=== PATIENT | female | born 1975 | race Caucasian/White ===

== ENCOUNTER → 2017-08-27 08:50 | Outpatient (REF) | payer OTHER, SELFPAY ==
[2017-08-27 13:28] LABS: Basophils # 0.1 K/mm3 (0-0.2); Basophils % 1.3 % (0.1-2.0); Eosinophils % 0.8 % (0.1-12.0); Hematocrit 47.7 % (37.0-47.0); Hemoglobin 15.2 g/dL (12.2-16.2); Lymphocytes # 1.6 K/mm3 (0.7-4.5); Lymphocytes % 32.2 K/mm3 (10-50); Mean Corpuscular HGB Conc 31.9 g/dL (31.8-35.4); Mean Corpuscular Hemoglobin 31.1 pg (27.0-31.2); Mean Corpuscular Volume 97.6 fl (81-99); Mean Platelet Volume 7.7 fl (7.4-10.4); Monocytes # 0.3 K/mm3 (0.1-1.0); Monocytes % 5.7 % (1.7-9.3); Neutrophils # 2.9 K/mm3 (1.8-7.8); Platelet Count 231 K/mm3 (142-424); Red Blood Count 4.89 M/mm3 (4.20-5.40); Red Cell Distribution Width 12.3 % (11.5-17.5); White Blood Count 4.8 K/mm3 (4.8-10.8)
[2017-08-27 17:07] LABS: Alanine Aminotransferase 21 U/L (12-78); Albumin Level 4.2 gm/dL (3.4-5.0); Albumin/Globulin Ratio 1.5 (1.1-1.8); Alkaline Phosphatase 68 U/L (46-116); Anion Gap 9.6 mEq/L (5-15); Aspartate Amino Transferase 52 U/L (15-37); Bilirubin,Total 0.3 mg/dL (0.2-1.0); Blood Urea Nitrogen 8 mg/dL (7-18); Calcium 9.4 mg/dL (8.5-10.1); Carbon Dioxide 30 mmol/L (21.0-32.0); Chloride 104 mmol/L (98-107); Chol/HDL Ratio 2.6 (1-3.5); Cholesterol 157 mg/dL (140-200); Creatinine,Serum 0.73 mg/dL (0.55-1.02); Estimated Glomerular Filt Rate 87 ml/min (>60); GFR (African American) 105 ML/MIN (>60); Globulin 2.8 gm/dl (1.3-3.2); Glucose 86 mg/dL (74-106); HDL Cholesterol 60 mg/dL (29-89); LDL Cholesterol 80 mg/dL (0-130); Potassium 4.6 mmoL/L (3.5-5.1); Sodium 139 mmol/L (136-145); T4 (Thyroxine) 9.4 ug/dl (4.7-13.3); Thyroid Stimulating Hormone 1.88 uIU/ml (0.358-3.740); Triglycerides 83 mg/dL (30-200); VLDL Cholesterol 17 mg/dL (0-40)
[2017-08-29 06:17] LABS: Vitamin D 25 Hydroxy 19.4 ng/mL (30.0-100.0)
== END ==
LOC: LAB 08:50
PROVIDERS: Visit Provider Physician Assistant
DX: E89.0 Postprocedural hypothyroidism (principal); M89.8X1 Other specified disorders of bone, shoulder
CPT/HCPCS: 80053; 80061; 82652; 84436; 84443; 85025

== ENCOUNTER → 2018-10-29 13:53 | Outpatient (CLI) | payer OTHER, SELFPAY ==
[2018-10-29 14:41] LABS: Basophils # 0.1 K/mm3 (0-0.2); Basophils % 1.3 % (0.1-2.0); Eosinophils # 0.2 K/mm3 (0.0-0.4); Eosinophils % 2.3 % (0.1-12.0); Hematocrit 47.7 % (37.0-47.0); Hemoglobin 15.4 g/dL (12.2-16.2); Lymphocytes # 2.6 K/mm3 (0.7-4.5); Lymphocytes % 39.2 % (10-50); Mean Corpuscular HGB Conc 32.3 g/dL (31.8-35.4); Mean Corpuscular Volume 95.9 fl (81-99); Mean Platelet Volume 8.3 fl (7.4-10.4); Monocytes # 0.3 K/mm3 (0.1-1.0); Neutrophils # 3.5 K/mm3 (1.8-7.8); Neutrophils % 52.3 % (37.0-80.0); Platelet Count 250 K/mm3 (142-424); Red Blood Count 4.97 M/mm3 (4.20-5.40); Red Cell Distribution Width 12.4 % (11.5-17.5); White Blood Count 6.7 K/mm3 (4.8-10.8)
[2018-10-29 14:46] LABS: Alanine Aminotransferase 21 U/L (12-78); Albumin Level 3.9 gm/dL (3.4-5.0); Albumin/Globulin Ratio 1.4 (1.1-1.8); Alkaline Phosphatase 64 U/L (46-116); Anion Gap 13.4 mEq/L (5-15); Aspartate Amino Transferase 47 U/L (15-37); Bilirubin,Total 0.3 mg/dL (0.2-1.0); Blood Urea Nitrogen 14 mg/dL (7-18); Calcium 9.2 mg/dL (8.5-10.1); Carbon Dioxide 28 mmol/L (21.0-32.0); Chloride 105 mmol/L (98-107); Chol/HDL Ratio 3.2 (1-3.5); Cholesterol 137 mg/dL (140-200); Creatinine,Serum 0.68 mg/dL (0.55-1.02); Estimated Glomerular Filt Rate 94 ml/min (>60); GFR (African American) 113 ML/MIN (>60); Globulin 2.7 gm/dl (1.3-3.2); Glucose 104 mg/dL (74-106); HDL Cholesterol 43 mg/dL (29-89); LDL Cholesterol 64 mg/dL (0-130); Potassium 3.4 mmoL/L (3.5-5.1); Sodium 143 mmol/L (136-145); T4 (Thyroxine) 10.3 ug/dl (4.7-13.3); Thyroid Stimulating Hormone 3.17 uIU/ml (0.358-3.740); Total Protein,Serum 6.6 gm/dL (6.4-8.2); Triglycerides 151 mg/dL (30-200); VLDL Cholesterol 30 mg/dL (0-40)
== END ==
PROVIDERS: Visit Provider Physician Assistant
DX: E89.0 Postprocedural hypothyroidism (principal); E55.9 Vitamin D deficiency, unspecified
CPT/HCPCS: 80053; 80061; 82652; 84436; 84443; 85025

== ENCOUNTER 2020-04-04 13:36 | Emergency (ER) | payer OTHER, SELFPAY ==
[2020-04-04 13:45] VITALS: BP 126/57; PULSE 88; RESP 16; TEMP 36.8; O2SAT 97; BMI 17.9
[2020-04-04 14:02] LABS: UTC Strep Screen (Rapid) Negative (Negative)
--- NOTE | 2020-04-04 14:14 | HMH.EDUTC ---
[facility] [place] Disposition Clinical Impression: Enlarged lymph node in neck Otitis media Qualifiers: Otitis media type: suppurative Chronicity: acute Laterality: left Recurrence: non-recurrent Spontaneous tympanic membrane rupture: without spontaneous rupture Qualified Code(s): H66.002 - Acute suppurative otitis media without spontaneous rupture of ear drum, left ear Disposition: Home, Self-Care Condition on Discharge: Good Instructions: Middle Ear Infection Additional Instructions: Start antibiotic as soon as possible and be sure to take as ordered for full length of time even though he should start feeling better in 24-48 hours. Tylenol or Motrin as needed for pain or fever Encourage fluids, water, Gatorade, Powerade, Pedialyte if infant/toddler/child Warm compresses often helps when placed over ear Return immediately for new or worsening symptoms no noticeable improvement in 48-72 hours and in 10-14 days to ensure the ears are return to baseline. Follow-up with primary care Prescriptions: cephALEXin [Keflex 500mg Cap] 500 mg PO BID 10 Days #20 cap Referrals: Negra Díaz PA [Primary Care Provider] - Time of Disposition: 14:20 Medical Decision Making - Ernie Inquiry Pt receiving controlled substance: No Vital Signs: 04/04/20 13:45 Temperature 98.3 F Temperature Source Oral Pulse Rate [Right Brachial] 88 Respiratory Rate 16 Blood Pressure [Right Arm] 126/57 L Blood Pressure Mean [Right Arm] 80 Blood Pressure Source [Right Arm] Automatic Cuff Blood Pressure Position [Right Arm] Sitting 02 Sat by Pulse Oximetry 97 Oxygen Delivery Method Room Air - Lab Data Lab Results 04/04/20 13:54: Strep Scn Rapid Clinic Negative Orders (Tests/Meds): ED MEDICATIONS Discontinued Medications Generic Name Dose Route Start Last Admin Trade Name Freq PRN Reason Stop Dose Admin Ceftriaxone Sodium 1 gm 04/04/20 14:13 Ceftriaxone 1gm Vial IM 04/04/20 14:14 ONCE ONE Protocol Lidocaine HCl 0 ml 04/04/20 14:13 Lidocaine 1% 5ml Pf Vial IM 04/04/20 14:14 ONCE ONE ORDERS Category Date Time Status Strep Screen Confirmation Stat Micro 04/04/20 13:54 Received [facility] [place] HPI - General Chief complaint: Urgent Treatment Center Stated complaint: sore throat Time Seen by Provider: 04/04/20 14:15 Mode of Arrival: Ambulatory Source of Information: Patient Limitations: No Limitations Description of Symptoms (Recalled from Triage Doc. by RN): PATIENT C/O SORE THROAT. SON IN LAW RECENTLY TREATED FOR TONSILITIS HEENT Symptoms (Recalled from RN notes): Yes Resp Symptoms (Recalled from RN notes): No Skin Symptoms (Recalled from RN notes): No MS Symptoms (Recalled from RN notes): No Functional Status (Recalled from RN notes): WNL - History of Present Illness Provider Complaint: 45 yr old female presents for swollen gland on the left and sore throat. pt states family was treated for tonsilitits. - Related Data Previous Rx's Medication Instructions Recorded cholecalciferol (vitamin D3) 25 1,000 unit PO DAILY #90 cap 11/04/18 mcg (1,000 unit) capsule ergocalciferol (vitamin D2) 1,250 50,000 unit PO QWEEK #14 cap 11/04/18 mcg (50,000 unit) capsule amoxicillin 875 mg-potassium 1 tab PO BID 10 Days #20 tab 10/02/19 clavulanate 125 mg tablet prednisone 20 mg tablet 20 mg PO BID #10 tab 10/02/19 pseudoephedrine HCl 120 mg 120 mg PO Q12H #20 tab 10/02/19 tablet,extended release ondansetron 8 mg disintegrating 8 mg PO Q8H PRN #10 tab 10/06/19 tablet levothyroxine 75 mcg tablet See Rx Instructions .ROUTE 02/12/20 .COMPLEX #90 tab cephALEXin [Keflex 500mg Cap] 500 mg PO BID 10 Days #20 cap 04/04/20 Allergies Allergy/AdvReac Type Severity Reaction Status Date / Time Sulfonamide Related Allergy Unknown Uncoded 10/02/19 11:04 - Worker's Comp Is this a Worker's Comp case?: No [facility] History - Hepatitis A Screen Drug use history?: No High risk sexual behaviors?
[2020-04-04 14:27] VITALS: BP 126/57; PULSE 88; RESP 16; TEMP 36.8; O2SAT 97
== END 2020-04-04 14:35 | disposition home or self-care (01) ==
PROVIDERS: Emergency Provider Nurse Practitioner Family; PCP Physician Assistant
DX: H66.002 Acute suppurative otitis media without spontaneous rupture of ear drum, left ear (principal); R59.0 Localized enlarged lymph nodes; E03.9 Hypothyroidism, unspecified; F17.210 Nicotine dependence, cigarettes, uncomplicated; Z87.442 Personal history of urinary calculi; Z88.2 Allergy status to sulfonamides
CPT/HCPCS: 87880; 96372; 99202

== ENCOUNTER 2020-04-05 17:54 | Emergency (ER) | payer OTHER, SELFPAY ==
[2020-04-05 18:59] VITALS: BP 130/74; PULSE 83; RESP 21; TEMP 36.7; O2SAT 99; BMI 17.9
[2020-04-05 19:03] VITALS: BP 130/74; PULSE 83; RESP 20; TEMP 36.7; O2SAT 99
--- NOTE | 2020-04-05 19:16 | HMH.EDUTC ---
[facility] [place] Clinical Impression: Encounter for laboratory testing for COVID-19 virus Disposition: Home, Self-Care Condition on Discharge: Good Instructions: Preventing the Spread of Coronavirus Discharge Instructions Additional Instructions: *Monitor Temp, Over the counter Motrin or Tylenol as directed/as needed Tylenol every 4 hours and Motrin every 6 hours (as long as your family doctor has told you that you can take it) for fever or pain. and straight to ER if unable to lower temp less than 101.0 after medication given *Warm salt water gargles may help to soothe the throat *Throat Lozenges *Warm fluids like tea with honey may help to soothe the throat *Sleep elevated *Humidifier/Vaporizer Follow up IMMEDIATELY for new or worsening symptoms or no Noticeable improvement over the next 48-72 hours. 911 for difficulty breathing or swallowing You were tested for today for COVID19 your test result should be back in the next 24-48 hours, you may call to the [facility] to see if your test results are back in the next 48 hours [phone] [facility] hours are 9am-9pm You was given a handout with instructions for Self Quarantine and Self isolation for while you wait on test results and what to do if they are positive If you are positive the Health Dept will be contacting you also Referrals: Negra Díaz PA [Primary Care Provider] - As needed Forms: Work/School Release Time of Disposition: 19:19 Medical Decision Making - Ernie Inquiry Pt receiving controlled substance: No Ernie was queried for this patient: No Vital Signs: 04/05/20 18:59 04/05/20 19:03 Temperature 98.1 F 98.1 F Temperature Source Oral Tympanic Pulse Rate 83 Pulse Rate [Left] 83 Respiratory Rate 21 20 Blood Pressure 130/74 Blood Pressure [Right Arm] 130/74 Blood Pressure Mean [Right Arm] 92 Blood Pressure Source [Right Arm] Automatic Cuff Blood Pressure Position [Right Arm] Sitting 02 Sat by Pulse Oximetry 99 Oxygen Delivery Method Room Air Orders (Tests/Meds): ORDERS Category Date Time Status Covid-19 Nasal PCR Sendout [facility] Stat Lab 04/05/20 18:37 Ordered Medical Decision Narrative: Patient states that she was seen and treated yesterday for Ear infection and started on Keflex [facility] [place] - General Stated complaint: covid test Time Seen by Provider: 04/05/20 19:16 Mode of Arrival: Ambulatory Source of Information: Patient Limitations: No Limitations Description of Symptoms (Recalled from Triage Doc. by RN): Covid test- No exposure or symptoms HEENT Symptoms (Recalled from RN notes): No Resp Symptoms (Recalled from RN notes): No Skin Symptoms (Recalled from RN notes): No MS Symptoms (Recalled from RN notes): No Functional Status (Recalled from RN notes): wnl - History of Present Illness Provider Complaint: Patient states that she is not having any symptoms but wanted to get tested for COVID after her job requested that she come in and get tested for COVID - Related Data Previous Rx's Medication Instructions Recorded cholecalciferol (vitamin D3) 25 1,000 unit PO DAILY #90 cap 11/04/18 mcg (1,000 unit) capsule ergocalciferol (vitamin D2) 1,250 50,000 unit PO QWEEK #14 cap 11/04/18 mcg (50,000 unit) capsule amoxicillin 875 mg-potassium 1 tab PO BID 10 Days #20 tab 10/02/19 clavulanate 125 mg tablet prednisone 20 mg tablet 20 mg PO BID #10 tab 10/02/19 pseudoephedrine HCl 120 mg 120 mg PO Q12H #20 tab 10/02/19 tablet,extended release ondansetron 8 mg disintegrating 8 mg PO Q8H PRN #10 tab 10/06/19 tablet levothyroxine 75 mcg tablet See Rx Instructions .ROUTE 02/12/20 .COMPLEX #90 tab cephALEXin [Keflex 500mg Cap] 500 mg PO BID 10 Days #20 cap 04/04/20 Allergies Allergy/AdvReac Type Severity Reaction Status Date / Time Sulfonamide Related Allergy Intermediate Unknown Uncoded 04/05/20 19:03 allergy reaction - Worker's Comp Is this a Worker's Comp case?: No Is this an [facility] Worker's Co
[2020-04-07 14:18] LABS: Covid-19 Nasal PCR Sendout Lex Not Detected
== END 2020-04-05 19:37 | disposition home or self-care (01) ==
PROVIDERS: Emergency Provider Nurse Practitioner; PCP Physician Assistant
DX: Z20.828 Contact with and (suspected) exposure to other viral communicable diseases (principal); E03.9 Hypothyroidism, unspecified; Z87.442 Personal history of urinary calculi; F17.210 Nicotine dependence, cigarettes, uncomplicated; Z79.899 Other long term (current) drug therapy
CPT/HCPCS: 99201; U0004

== ENCOUNTER → 2020-12-02 14:08 | Outpatient (CLI) | payer OTHER, SELFPAY ==
[2020-12-02 14:27] LABS: Basophils # 0.2 K/mm3 (0-0.2); Basophils % 2.3 % (0.1-2.0); Eosinophils # 0.1 K/mm3 (0.0-0.4); Eosinophils % 1.6 % (0.1-12.0); Hematocrit 48.1 % (37.0-47.0); Hemoglobin 16.1 g/dL (12.2-16.2); Lymphocytes # 3.4 K/mm3 (0.7-4.5); Lymphocytes % 40.4 % (10-50); Mean Corpuscular HGB Conc 33.5 g/dL (31.8-35.4); Mean Corpuscular Hemoglobin 31.7 pg (27.0-31.2); Mean Corpuscular Volume 94.5 fl (81-99); Monocytes # 0.5 K/mm3 (0.1-1.0); Monocytes % 5.5 % (1.7-9.3); Neutrophils # 4.2 K/mm3 (1.8-7.8); Neutrophils % 50.1 % (37.0-80.0); Platelet Count 254 K/mm3 (142-424); Red Blood Count 5.08 M/mm3 (4.20-5.40); Red Cell Distribution Width 13.5 % (11.5-17.5); White Blood Count 8.3 K/mm3 (4.8-10.8)
[2020-12-02 15:00] LABS: 25-OH Vitamin D, Total 24.6 ng/mL (30-100)
[2020-12-02 15:03] LABS: Free T4 (Free Thyroxine) 1.56 ng/dl (0.78-2.19)
[2020-12-02 22:13] LABS: Alanine Aminotransferase 30 U/L (12-78); Albumin Level 4.8 g/dl (3.5-5.0); Albumin/Globulin Ratio 1.8 (1.1-1.8); Alkaline Phosphatase 71 U/L (38-126); Anion Gap 16.2 mEq/L (5-15); Aspartate Amino Transferase 97 U/L (14-36); Bilirubin,Total 0.4 mg/dl (0.2-1.3); Blood Urea Nitrogen 20 mg/dl (7-17); Calcium 9.4 mg/dl (8.4-10.2); Carbon Dioxide 28 mmol/L (22.0-30.0); Chloride 101 mmol/L (98-107); Chol/HDL Ratio 2.4 (1-3.5); Cholesterol 169 mg/dl (140-200); Estimated Glomerular Filt Rate 67 ml/min (>60); GFR (African American) 81 ML/MIN (>60); Globulin 2.6 g/dL (1.3-3.2); Glucose 60 mg/dl (74-100); HDL Cholesterol 69 mg/dl (40-60); Potassium 4.2 mmoL/L (3.5-5.1); Sodium 141 mmol/L (136-145); Total Protein,Serum 7.4 g/dl (6.3-8.2); Triglycerides 161 mg/dl (30-150); VLDL Cholesterol 32 mg/dL (0-40)
[2020-12-02 22:24] LABS: Direct LDL Cholesterol 73.89 mg/dL (100-129)
[2020-12-02 22:43] LABS: Thyroid Stimulating Hormone 6.05 uIU/mL (0.465-4.68)
== END ==
PROVIDERS: Visit Provider Physician Assistant
DX: E89.0 Postprocedural hypothyroidism (principal); E55.9 Vitamin D deficiency, unspecified
CPT/HCPCS: 80053; 80061; 82306; 84439; 84443; 85025

== ENCOUNTER → 2020-12-30 08:41 | Outpatient (CLI) | payer OTHER, SELFPAY ==
--- NOTE | 2020-12-30 08:41 | US_ITS ---
PROCEDURE: US LIVER CLINICAL INDICATION: Elevated liver enzymes COMPARISON: No exams were available for comparison FINDINGS: PANCREAS: Unremarkable. No obvious mass or abnormal fluid collection. No ductal dilatation LIVER: No focal liver lesions demonstrated. Homogeneous echogenicity. No intrahepatic biliary ductal dilatation evident. There is appropriate direction of blood flow within a non dilated portal vein RIGHT KIDNEY: Unremarkable. Normal size and echogenicity. No hydronephrosis GALLBLADDER: Prior cholecystectomy. Common bile duct is normal at 2 mm. IMPRESSION: Prior cholecystectomy otherwise negative Dictated by: Danielito Le MD 12/30/2020 16:09 Danielito Le MD in [place] 12/30/2020 16:09
== END ==
PROVIDERS: PCP Physician Assistant; Visit Provider Physician Assistant
DX: R74.8 Abnormal levels of other serum enzymes (principal)
CPT/HCPCS: 76705

== ENCOUNTER → 2020-12-30 09:19 | Outpatient (CLI) | payer OTHER, SELFPAY ==
[2020-12-31 08:30] LABS: Hep A Ab, IgM Negative (Negative); Hepatitis B Core Antibody IgM Negative (Negative); Hepatitis B Surface Antigen Negative (Negative); Hepatitis C Antibody <0.1 s/co ratio (0.0-0.9)
== END ==
PROVIDERS: Visit Provider Physician Assistant
DX: R74.8 Abnormal levels of other serum enzymes (principal)
CPT/HCPCS: 36415; 80074

== ENCOUNTER → 2021-03-16 13:15 | Outpatient (CLI) | payer OTHER, SELFPAY ==
[2021-03-16 14:35] LABS: Alanine Aminotransferase 16 U/L (12-78); Albumin Level 4.7 g/dl (3.5-5.0); Alkaline Phosphatase 41 U/L (38-126); Aspartate Amino Transferase 64 U/L (14-36); Bilirubin,Direct 0.2 mg/dl (0.0-0.4); Bilirubin,Indirect 0.2 mg/dL (0.0-0.9); Bilirubin,Total 0.4 mg/dl (0.2-1.3); Bilirubin,Unconjugated 0.2 mg/dL (0.0-1.1); Total Protein,Serum 7.2 g/dl (6.3-8.2)
== END ==
PROVIDERS: Visit Provider Physician Assistant
DX: R74.8 Abnormal levels of other serum enzymes (principal)
CPT/HCPCS: 36415; 80076

== ENCOUNTER → 2021-06-24 16:00 | Outpatient (CLI) | payer OTHER, SELFPAY ==
[2021-06-24 17:18] LABS: Adenovirus,PCR Not Detected (NotDetected); Bordetella Pertussis Not Detected (NotDetected); Chlamydophila Pneumoniae, PCR Not Detected (NotDetected); Coronavirus 19, PCR Not Detected (NotDetected); Coronavirus 229E Not Detected (NotDetected); Coronavirus NL63 Not Detected (NotDetected); Coronavirus OC43 Not Detected (NotDetected); Coronovirus HKU1,PCR Not Detected (NotDetected); Human Metapneumovirus Not Detected (NotDetected); Influenza A, PCR Not Detected (NotDetected); Influenza AH1, 2009 Not Detected (NotDetected); Influenza AH1, PCR Not Detected (NotDetected); Influenza AH3,PCR Not Detected (NotDetected); Influenza B, PCR Not Detected (NotDetected); Mycoplasma Pneumoniae, PCR Not Detected (NotDetected); Parainfluenza 1, PCR Not Detected (NotDetected); Parainfluenza 2, PCR Not Detected (NotDetected); Parainfluenza 3, PCR Not Detected (NotDetected); Parainfluenza 4, PCR Not Detected (NotDetected); Respiratory Syncytial Virus Not Detected (NotDetected); Rhinovirus/Enterovirus Not Detected (NotDetected)
== END ==
PROVIDERS: Visit Provider Nurse Practitioner Family
DX: Z20.822 Contact with and (suspected) exposure to COVID-19 (principal); J32.9 Chronic sinusitis, unspecified
CPT/HCPCS: 87581; 87632; 87798; C9803; U0003; U0005

== ENCOUNTER → 2021-06-27 12:15 | Outpatient (CLI) | payer OTHER, SELFPAY ==
--- NOTE | 2021-06-27 12:22 | XR_ITS ---
FINAL REPORT CLINICAL HISTORY: SOA FINDINGS: Two views of the chest were obtained. The heart size and pulmonary vascularity are within normal limits. The mediastinum is normal. No acute pulmonary abnormality is identified. The lungs are hyperinflated consistent with COPD. There is a right upper lobe linear opacity consistent with scarring. There is no pneumothorax. The bony thorax is intact. IMPRESSION: Hyperinflated lungs consistent with COPD. Right upper lobe linear opacity consistent with scarring. Reviewed, Interpreted and Dictated by Mehran Treviño III, MD Transcribed by KYLER Martinez Authenticated by Mehran Treviño III, MD on 06/27/2021 02:42:18 PM [facility]
== END ==
PROVIDERS: PCP Physician Assistant; Visit Provider Nurse Practitioner Family
DX: R06.02 Shortness of breath (principal)
CPT/HCPCS: 71046

== ENCOUNTER → 2021-07-04 08:11 | Outpatient (CLI) | payer OTHER, SELFPAY ==
[2021-07-04 08:45] VITALS: PULSE 90; PULSE 99
== END ==
PROVIDERS: PCP Physician Assistant; Visit Provider Nurse Practitioner Family
DX: R06.02 Shortness of breath (principal)
CPT/HCPCS: 94060; 94618; 94640; 94727; 94729

== ENCOUNTER 2021-07-05 16:54 | Emergency (ER) | payer OTHER, SELFPAY ==
[2021-07-05 16:55] VITALS: BP 143/69; PULSE 87; RESP 16; TEMP 37.3; O2SAT 98; BMI 17.9
[2021-07-05 18:06] LABS: UTC Influenza A Antigen Negative (Negative); UTC Strep Screen (Rapid) Negative (Negative)
[2021-07-05 18:07] LABS: UTC Influenza B Antigen Negative (Negative)
--- NOTE | 2021-07-05 18:39 | HMH.EDUTC ---
[facility] [place] Disposition Clinical Impression: Acute bronchitis Qualifiers: Bronchitis organism: unspecified organism Qualified Code(s): J20.9 - Acute bronchitis, unspecified Disposition: Home, Self-Care Condition on Discharge: Good Instructions: Acute Bronchitis, DI for Acute Bronchitis Additional Instructions: Drink plenty of fluids. Take tylenol or ibuprofen for pain or fever. Take the medications as directed. Follow up with your regular doctor. GO TO THE ER FOR ANY WORSENING SYMPTOMS Quarantine until you know the results of your covid-19 test. Notify your school or workplace of your results and follow their instructions regarding return to work/school. Prescriptions: Amoxicillin/Potassium Clav [Amox-Clav 875-125 mg Tablet] 1 tab PO BID #20 tab Transmission Status: Received by [facility] #[id number] Benzonatate [Benzonatate 100mg cap] 100 mg PO TIDP PRN #30 cap PRN Reason: Cough Transmission Status: Received by [facility] #[id number] methylPREDNISolone [Medrol] 4 mg PO DIRECTED 6 Days #21 packet Transmission Status: Received by [facility] #[id number] Referrals: Negra Díaz PA [Primary Care Provider] - Forms: Work/School Release Time of Disposition: 18:59 Medical Decision Making - Medical Records Medical records reviewed: No: I reviewed the patient's medical records. - Ernie Inquiry Pt receiving controlled substance: No Vital Signs: 07/05/21 16:55 07/05/21 19:07 Temperature 99.1 F 99.0 F Temperature Source Oral Oral Pulse Rate 87 Pulse Rate [Right] 87 Respiratory Rate 16 16 Blood Pressure 143/60 H Blood Pressure [Right Arm] 143/69 H Blood Pressure Mean [Right Arm] 93 Blood Pressure Source Automatic Cuff Blood Pressure Source [Right Arm] Automatic Cuff Blood Pressure Position Sitting Blood Pressure Position [Right Arm] Sitting 02 Sat by Pulse Oximetry 98 Oxygen Delivery Method Room Air Room Air - Lab Data Lab results reviewed: Yes: I reviewed the patient's lab results. Lab Results 07/05/21 17:57: Influenza Type A Ag Negative, Influenza Type B Ag Negative 07/05/21 17:57: Strep Scn Rapid Clinic Negative Orders (Tests/Meds): ORDERS Category Date Time Status Strep Screen Confirmation Stat Micro 07/05/21 17:57 Received [facility] [place] HPI - General Stated complaint: sore throat, v/d, cough, sob, congestion Time Seen by Provider: 07/05/21 18:39 Mode of Arrival: Ambulatory Source of Information: Patient Limitations: No Limitations Description of Symptoms (Recalled from Triage Doc. by RN): cough, fever, sore throat, body aches HEENT Symptoms (Recalled from RN notes): Yes (fever, cough, body aches) Resp Symptoms (Recalled from RN notes): No Skin Symptoms (Recalled from RN notes): No MS Symptoms (Recalled from RN notes): No Functional Status (Recalled from RN notes): na - History of Present Illness Provider Complaint: she states that for the past 1 week she has had chest congestion, productive cough, body aches and pleuritic chest pain. - Related Data Previous Rx's Medication Instructions Recorded cholecalciferol (vitamin D3) 25 25 mcg PO DAILY #30 cap 12/09/20 mcg (1,000 unit) capsule ergocalciferol (vitamin D2) 1,250 1,250 mcg PO WEEKLY #10 cap 12/09/20 mcg (50,000 unit) capsule levothyroxine 100 mcg tablet 100 mcg PO DAILY #90 tab 04/04/21 azithromycin 250 mg tablet See Rx Instructions PO .COMPLEX #6 06/24/21 tab prednisone 20 mg tablet 20 mg PO BID 5 Days #10 tab 06/24/21 Amoxicillin/Potassium Clav 1 tab PO BID #20 tab 07/05/21 [Amox-Clav 875-125 mg Tablet] Benzonatate [Benzonatate 100mg 100 mg PO TIDP PRN #30 cap 07/05/21 cap] methylPREDNISolone [Medrol] 4 mg PO DIRECTED 6 Days #21 07/05/21 packet Allergies Allergy/AdvReac Type Severity Reaction Status Date / Time Sulfonamide Related Allergy Intermediate Unknown Uncoded 06/24/21 13:44 allergy reaction - Worker's Com
[2021-07-05 19:07] VITALS: BP 143/60; PULSE 87; RESP 16; TEMP 37.2; O2SAT 98
== END 2021-07-05 19:08 | disposition home or self-care (01) ==
PROVIDERS: Emergency Provider Nurse Practitioner Family; PCP Physician Assistant
DX: J20.9 Acute bronchitis, unspecified (principal); E03.9 Hypothyroidism, unspecified
CPT/HCPCS: 87804; 87880; 99212; G0463

== ENCOUNTER → 2021-09-06 06:56 | Outpatient (CLI) | payer OTHER, SELFPAY ==
--- NOTE | 2021-09-06 07:24 | XR_ITS ---
FINAL REPORT CLINICAL HISTORY: LT HIP PAIN FINDINGS: LEFT HIP Three views were obtained. There is no acute fracture or dislocation. The joint spaces appear normal. No soft tissue abnormality is identified. IMPRESSION: No acute process. Reviewed, Interpreted and Dictated by Mehran Treviño III, MD Transcribed by Nancy Doss Authenticated by Mehran Treviño III, MD on 09/06/2021 08:43:[address] [facility] [place]
--- NOTE | 2021-09-06 07:24 | XR_ITS ---
FINAL REPORT CLINICAL HISTORY: DDD,LT HIP PAIN FINDINGS: LUMBAR SPINE. Seven views demonstrate no acute fracture. Mild degenerative change with osteophytes are present. There is mild vascular calcification. There is no abnormal movement with flexion and extension maneuvers. IMPRESSION: Mild degenerative changes. Reviewed, Interpreted and Dictated by Mehran Treviño III, MD Transcribed by Nancy Doss Authenticated by Mehran Treviño III, MD on 09/06/2021 08:43:30 AM [facility]
[2021-09-06 08:15] LABS: Basophils # 0.2 K/mm3 (0-0.2); Basophils % 3.1 % (0.1-2.0); Eosinophils # 0.1 K/mm3 (0.0-0.4); Hematocrit 46.9 % (37.0-47.0); Hemoglobin 15.3 g/dL (12.2-16.2); Lymphocytes # 2.1 K/mm3 (0.7-4.5); Mean Corpuscular HGB Conc 32.7 g/dL (31.8-35.4); Mean Corpuscular Hemoglobin 32.3 pg (27.0-31.2); Mean Corpuscular Volume 98.7 fl (81-99); Mean Platelet Volume 8.1 fl (7.4-10.4); Monocytes # 0.3 K/mm3 (0.1-1.0); Monocytes % 5.1 % (1.7-9.3); Neutrophils # 2.7 K/mm3 (1.8-7.8); Neutrophils % 50.8 % (37.0-80.0); Platelet Count 228 K/mm3 (142-424); Red Blood Count 4.76 M/mm3 (4.20-5.40); Red Cell Distribution Width 13.3 % (11.5-17.5); White Blood Count 5.2 K/mm3 (4.8-10.8)
[2021-09-06 08:20] LABS: Alanine Aminotransferase 18 U/L (12-78); Albumin Level 4.2 g/dl (3.5-5.0); Alkaline Phosphatase 52 U/L (38-126); Anion Gap 7.5 mEq/L (5-15); Aspartate Amino Transferase 60 U/L (14-36); Bilirubin,Total 0.5 mg/dl (0.2-1.3); Blood Urea Nitrogen 8 mg/dl (7-17); Calcium 8.9 mg/dl (8.4-10.2); Carbon Dioxide 30 mmol/L (22.0-30.0); Chloride 104 mmol/L (98-107); Estimated Glomerular Filt Rate 107 ml/min (>60); GFR (African American) 129 ML/MIN (>60); Globulin 2.1 g/dL (1.3-3.2); Glucose 102 mg/dl (74-100); Potassium 3.5 mmoL/L (3.5-5.1); Sodium 138 mmol/L (136-145); Total Protein,Serum 6.3 g/dl (6.3-8.2)
[2021-09-06 08:26] LABS: C-Reactive Protein 0.4 mg/L (0-4)
[2021-09-06 08:32] LABS: Intact Parathyroid Hormone 55.5 pg/mL (7.5-53.5)
[2021-09-06 08:39] LABS: 25-OH Vitamin D, Total 26.3 ng/mL (30-100)
[2021-09-06 08:51] LABS: Thyroid Stimulating Hormone 2.18 uIU/mL (0.465-4.68)
[2021-09-06 08:55] LABS: Erythrocyte Sedimentation Rate 2 mm/hr (0-20)
[2021-09-06 09:27] LABS: Vitamin B12 391 pg/mL (239-931)
[2021-09-08 04:28] LABS: RA Latex Turbid. <10.0 IU/mL (<14.0)
[2021-09-10 09:18] LABS: Antinuclear Antibodies, IFA Negative (.)
== END ==
PROVIDERS: PCP Registered Nurse; Visit Provider Registered Nurse
DX: M25.552 Pain in left hip (principal); M51.36 Other intervertebral disc degeneration, lumbar region; E55.9 Vitamin D deficiency, unspecified; E89.0 Postprocedural hypothyroidism; M13.0 Polyarthritis, unspecified; R53.82 Chronic fatigue, unspecified; Z85.41 Personal history of malignant neoplasm of cervix uteri
CPT/HCPCS: 36415; 72114; 73502; 80053; 82306; 82330; 82607; 82746; 83970; 84443; 85025; 85651; 86038; 86140; 86431

== ENCOUNTER → 2022-04-27 15:04 | Outpatient (CLI) | payer OTHER, SELFPAY ==
[2022-04-27 15:33] LABS: Basophils # 0.1 K/mm3 (0-0.2); Basophils % 1.7 % (0.1-2.0); Eosinophils # 0.2 K/mm3 (0.0-0.4); Eosinophils % 2.1 % (0.1-12.0); Hematocrit 49.7 % (37.0-47.0); Hemoglobin 15.9 g/dL (12.2-16.2); Lymphocytes # 1.9 K/mm3 (0.7-4.5); Mean Corpuscular Hemoglobin 31.6 pg (27.0-31.2); Mean Corpuscular Volume 98.8 fl (81-99); Mean Platelet Volume 7.5 fl (7.4-10.4); Monocytes # 0.3 K/mm3 (0.1-1.0); Monocytes % 3.8 % (1.7-9.3); Neutrophils # 5.3 K/mm3 (1.8-7.8); Neutrophils % 68.4 % (37.0-80.0); Platelet Count 315 K/mm3 (142-424); Red Blood Count 5.03 M/mm3 (4.20-5.40); Red Cell Distribution Width 12.8 % (11.5-17.5); White Blood Count 7.8 K/mm3 (4.8-10.8)
[2022-04-27 15:56] LABS: Alanine Aminotransferase 22 U/L (12-78); Albumin Level 4.9 g/dl (3.5-5.0); Alkaline Phosphatase 79 U/L (38-126); Aspartate Amino Transferase 69 U/L (14-36); Bilirubin,Total 0.5 mg/dl (0.2-1.3); Blood Urea Nitrogen 8 mg/dl (7-17); Calcium 9.6 mg/dl (8.4-10.2); Carbon Dioxide 35 mmol/L (22.0-30.0); Chloride 98 mmol/L (98-107); Estimated Glomerular Filt Rate 89 ml/min (>60); GFR (African American) 108 ML/MIN (>60); Globulin 2.5 g/dL (1.3-3.2); Glucose 113 mg/dl (74-100); Sodium 139 mmol/L (136-145); Total Protein,Serum 7.4 g/dl (6.3-8.2)
[2022-04-27 16:09] LABS: Intact Parathyroid Hormone 49.8 pg/mL (7.5-53.5)
[2022-04-27 16:11] LABS: 25-OH Vitamin D, Total 26.1 ng/mL (30-100)
[2022-04-27 16:12] LABS: C-Reactive Protein 1.6 mg/L (0-4)
[2022-04-27 16:52] LABS: Erythrocyte Sedimentation Rate 18 mm/hr (0-20)
[2022-04-27 17:04] LABS: Folate 4.67 ng/mL; Vitamin B12 575 pg/mL (239-931)
[2022-04-29 15:05] LABS: Calcium, Ionized 5.3 mg/dL (4.5-5.6)
[2022-05-01 22:19] LABS: Antinuclear Antibodies, IFA Negative (.)
== END ==
PROVIDERS: PCP Registered Nurse; Visit Provider Registered Nurse
DX: E89.0 Postprocedural hypothyroidism (principal); E55.9 Vitamin D deficiency, unspecified; R53.82 Chronic fatigue, unspecified; M13.0 Polyarthritis, unspecified; R79.89 Other specified abnormal findings of blood chemistry
CPT/HCPCS: 36415; 80053; 82306; 82330; 82607; 82746; 83970; 84443; 85025; 85651; 86038; 86140

== ENCOUNTER 2022-11-05 21:18 | Emergency (ER) | payer OTHER, SELFPAY ==
[2022-11-05 21:20] VITALS: BP 145/86; PULSE 99; RESP 22; TEMP 36.7; O2SAT 93; BMI 18.6
[2022-11-05 21:30] VITALS: BP 153/91; PULSE 88; O2SAT 99
--- NOTE | 2022-11-05 21:30 | ECG_ITS ---
APPROVED REPORT Exam: Resting ECG HR:88 bpm ECG Measurements Heart Rate 88 AXES VA 134 P 75 QRSd 98 QRS 75 QT 353 T 59 QTc 399 Conclusion SINUS RHYTHM NORMAL ECG UNCONFIRMED REPORT Electronically signed by : Otoniel Cervantes MD 11/06/2022 14:00:26
[2022-11-05 21:35] LABS: Coronavirus 19, PCR Not Detected (NotDetected); Influenza A, PCR Not Detected (NotDetected); Influenza B, PCR Not Detected (NotDetected)
--- NOTE | 2022-11-05 21:38 | XR_ITS ---
PROCEDURE INFORMATION: Exam: XR Chest Exam date and time: 11/05/2022 9:52 PM Age: 47 years old Clinical indication: Shortness of breath; Additional info: Cough and SOA TECHNIQUE: Imaging protocol: Radiologic exam of the chest. Views: 2 views. COMPARISON: CR XR CHEST 2V 06/27/2021 12:25 PM FINDINGS: Lungs: Stable linear scarring in the right lung apex. Left lung is clear. No acute infiltrate. Pleural spaces: Unremarkable. No pleural effusion. No pneumothorax. Heart/Mediastinum: Unremarkable. No cardiomegaly. Bones/joints: Unremarkable. IMPRESSION: No acute disease
--- NOTE | 2022-11-05 21:43 | PC.NURSE ---
RT at BS to administer breathing treatment
[2022-11-05 22:01] VITALS: BP 121/79; PULSE 94; O2SAT 92
[2022-11-05 22:08] LABS: Basophils # 0.1 K/mm3 (0-0.2); Basophils % 0.9 % (0.1-2.0); Eosinophils # 0.2 K/mm3 (0.0-0.4); Eosinophils % 1.5 % (0.1-12.0); Hematocrit 45.4 % (37.0-47.0); Hemoglobin 14.4 g/dL (12.2-16.2); Lymphocytes # 2.8 K/mm3 (0.7-4.5); Lymphocytes % 23.2 % (10-50); Mean Corpuscular HGB Conc 31.7 g/dL (31.8-35.4); Mean Corpuscular Hemoglobin 29.9 pg (27.0-31.2); Mean Corpuscular Volume 94.1 fl (81-99); Mean Platelet Volume 7.1 fl (7.4-10.4); Monocytes # 0.6 K/mm3 (0.1-1.0); Monocytes % 5.3 % (1.7-9.3); Neutrophils # 8.3 K/mm3 (1.8-7.8); Platelet Count 405 K/mm3 (142-424); Red Blood Count 4.83 M/mm3 (4.20-5.40); Red Cell Distribution Width 12.8 % (11.5-17.5)
[2022-11-05 22:12] LABS: Alanine Aminotransferase 43 U/L (12-78); Alkaline Phosphatase 177 U/L (38-126); Anion Gap 11.7 mEq/L (5-15); Aspartate Amino Transferase 92 U/L (14-36); Blood Urea Nitrogen 11 mg/dl (7-17); Calcium 9.1 mg/dl (8.4-10.2); Carbon Dioxide 35 mmol/L (22.0-30.0); Chloride 96 mmol/L (98-107); Creatinine Clearance Estimated 93 mL/min (50-200); Estimated Glomerular Filt Rate 106 ml/min (>60); GFR (African American) 129 ML/MIN (>60); Glucose 102 mg/dl (74-100); Magnesium 2.4 mg/dl (1.6-2.3); Potassium 3.7 mmoL/L (3.5-5.1); Sodium 139 mmol/L (136-145); Total Protein,Serum 7.5 g/dl (6.3-8.2)
--- NOTE | 2022-11-05 22:12 | PC.NURSE ---
CHECKED ON PT SHE ASKED TO USE RESTROOM UNHOOKED PT NOTHING ELSE NEEDED
[2022-11-05 22:17] LABS: C-Reactive Protein 32.3 mg/L (0-4)
[2022-11-05 22:31] LABS: T4 (Thyroxine) 10.7 ug/dl (5.53-11.0)
[2022-11-05 22:34] LABS: Troponin I < 0.01 ng/ml (0.00-0.034)
[2022-11-05 22:45] LABS: Thyroid Stimulating Hormone 2.18 uIU/mL (0.465-4.68)
[2022-11-05 22:52] VITALS: PULSE 83; PULSE 85
--- NOTE | 2022-11-05 22:54 | PC.NURSE ---
Dr. Torrez at
[2022-11-05 23:02] LABS: Erythrocyte Sedimentation Rate 39 mm/hr (0-20)
--- NOTE | 2022-11-05 23:21 | HMH.EDURI ---
Discharge Plan Disposition Patient Disposition: Home, Self-Care Prescriptions Prescriptions: New benzonatate 100 mg Capsule 100 mg PO Q8H Qty: 20 0RF prednisone [prednisone] 20 mg tablet 20 mg PO BID Qty: 10 0RF levofloxacin 500 mg tablet 500 mg PO DAILY Qty: 7 0RF No Action levothyroxine 100 mcg tablet See Rx Instructions .ROUTE .COMPLEX Rx Instructions: TAKE 1 TABLET BY MOUTH DAILY ergocalciferol (vitamin D2) 1,250 mcg (50,000 unit) capsule 1,250 mcg PO WEEKLY cholecalciferol (vitamin D3) 25 mcg (1,000 unit) capsule 25 mcg PO DAILY Referrals Follow up/Referrals: Provider,Referral, MD [Primary Care Provider] - See instructions Clinical Impressions Clinical Impression: Acute bronchitis Instructions Patient Instructions: DI for Acute Bronchitis Discharge ED Provider: Lore (ED)Evangelista URI/Sore Throat HPI General Chief Complaint: Upper Respiratory Infection Stated Complaint: SOA, head and chest congestion Time Seen by Provider: 11/05/22 22:15 Mode of Arrival: Ambulatory Source of Information: Patient and Medical Record Limitations: No Limitations Description of Symptoms (Recalled from ER Triage Doc. by RN): Pt c/o productive cough, congestion, chest tightness, and SOA w/ exertion for aprox 2 weeks. She reports multiple sick contacts as well with similar s/s. Pt wheezing throughout on ausculatation or lungs. No acute respiratory distress. History of Present Illness HPI Narrative: chest congestion with exposure to illness and has sob over the last 2 weeks Complaint: cough Onset (ago): day(s) Duration: intermittent Severity: moderate Able to tolerate fluids by mouth: Yes Context: sick contacts Related Data Home Medications Medication Instructions Recorded Confirmed cholecalciferol (vitamin D3) 25 25 mcg PO DAILY Supplement 11/05/22 11/05/22 mcg (1,000 unit) capsule ergocalciferol (vitamin D2) 1,250 1,250 mcg PO WEEKLY Supplement 11/05/22 11/05/22 mcg (50,000 unit) capsule levothyroxine 100 mcg tablet See Rx Instructions .Route 11/05/22 11/05/22 .COMPLEX Thyroid Previous Rx's Medication Instructions Recorded benzonatate 100 mg capsule 100 mg PO Q8H #20 caps 11/05/22 levofloxacin 500 mg tablet 500 mg PO DAILY #7 tabs 11/05/22 prednisone 20 mg tablet 20 mg PO BID #10 tabs 11/05/22 Allergies Allergy/AdvReac Type Severity Reaction Status Date / Time Sulfonamide Related Allergy Intermediate Unknown Uncoded 06/24/21 13:44 allergy reaction [facility] Disclaimer: The information contained in this section may have been updated after the patient was seen, as this information can be updated by other users. Medical History (Updated 11/05/22 @ 23:30 by Evangelista Torrez (JACKI)MD) Deformity, clavicle History of goiter Hypothyroidism (acquired) Pain of left clavicle Vitamin D deficiency (~08/29/17) Surgical History (Updated 08/27/17 @ 08:32 by KYLER Wheeler) History of thyroidectomy Social History Smoking Status: Current every day smoker tobacco type: cigarettes packs per day: 1 second hand exposure: No alcohol intake: never substance use type: denies use current occupational status: other Travel in the last 8 weeks: None household members: family housing: house ROS Obtained: Yes All systems reviewed & no additional complaints except as documented Physical Exam General General appearance: alert Head Head exam: normocephalic Eye Eye exam: Present PERRL and EOMI ENT ENT exam: Present mucous membranes moist Neck Neck exam: Present trachea midline Respiratory Respiratory exam: Present wheezes; Absent respiratory distress Cardiovascular Cardiovascular exam: Present regular rate; Absent systolic murmur Abdominal Exam Abdominal exam: Present soft Extremities Exam Extremities exam: Present full ROM Neurological Exam Neurological exam: Present alert, oriented X3 and CN II-XII intac
[2022-11-05 23:27] VITALS: BP 120/74; PULSE 84; RESP 18; TEMP 36.7; O2SAT 96
[2022-11-07 00:03] LABS: Bilirubin,Total 0.2 mg/dl (0.2-1.3)
[2022-11-07 00:06] LABS: Bilirubin,Indirect 0.2 mg/dL (0.0-0.9)
== END 2022-11-05 23:32 | disposition home or self-care (01) ==
PROVIDERS: Emergency Provider Emergency Medicine
DX: J20.9 Acute bronchitis, unspecified (principal); R06.02 Shortness of breath; R07.89 Other chest pain; E89.0 Postprocedural hypothyroidism; F17.210 Nicotine dependence, cigarettes, uncomplicated
CPT/HCPCS: 71046; 80048; 80076; 83735; 84436; 84443; 84484; 85025; 85651; 86140; 87070; 87077; 87186; 87205; 87636; 93005; 96361; 96374; 96375; 99285; J0696

== ENCOUNTER 2023-11-27 18:10 | Outpatient (CLI) | payer OTHER, SELFPAY ==
[2023-11-27 18:59] LABS: Basophils # 0.1 K/mm3 (0-0.2); Eosinophils # 0.1 K/mm3 (0.0-0.4); Eosinophils % 1.1 % (0.1-12.0); Hematocrit 49.4 % (37.0-47.0); Hemoglobin 16.2 g/dL (12.2-16.2); Lymphocytes # 1.9 K/mm3 (0.7-4.5); Lymphocytes % 37.1 % (10-50); Mean Corpuscular HGB Conc 32.7 g/dL (31.8-35.4); Mean Corpuscular Hemoglobin 31.8 pg (27.0-31.2); Mean Corpuscular Volume 97.1 fl (81-99); Mean Platelet Volume 8.2 fl (7.4-10.4); Monocytes # 0.3 K/mm3 (0.1-1.0); Monocytes % 5.9 % (1.7-9.3); Neutrophils # 2.7 K/mm3 (1.8-7.8); Platelet Count 256 K/mm3 (142-424); Red Blood Count 5.09 M/mm3 (4.20-5.40); Red Cell Distribution Width 13.1 % (11.5-17.5)
[2023-11-27 19:27] LABS: Alanine Aminotransferase 20 U/L (12-78); Albumin Level 4.4 g/dl (3.5-5.0); Albumin/Globulin Ratio 1.6 (1.1-1.8); Alkaline Phosphatase 74 U/L (38-126); Aspartate Amino Transferase 68 U/L (14-36); Bilirubin,Total 0.5 mg/dl (0.2-1.3); Blood Urea Nitrogen 15 mg/dl (7-17); Calcium 9.4 mg/dl (8.4-10.2); Carbon Dioxide 32 mmol/L (22.0-30.0); Chloride 102 mmol/L (98-107); Chol/HDL Ratio 2.5 (1-3.5); Cholesterol 191 mg/dl (140-200); Estimated Glomerular Filt Rate 76 ml/min (>60); GFR (African American) 92 ML/MIN (>60); Globulin 2.8 g/dL (1.3-3.2); Glucose 76 mg/dl (74-100); HDL Cholesterol 75 mg/dl (40-60); Sodium 139 mmol/L (136-145); Total Protein,Serum 7.2 g/dl (6.3-8.2); Triglycerides 92 mg/dl (30-150); VLDL Cholesterol 18 mg/dL (0-40)
[2023-11-27 19:38] LABS: 25-OH Vitamin D, Total 36.5 ng/mL (30-100); Direct LDL Cholesterol 77.71 mg/dL (100-129)
[2023-11-27 20:00] LABS: Thyroid Stimulating Hormone 0.18 uIU/mL (0.465-4.68)
== END 2023-11-27 23:59 | disposition home or self-care (01) ==
LOC: LAB.DROPOF 18:10
PROVIDERS: PCP Physician Assistant; Visit Provider Physician Assistant
DX: E03.9 Hypothyroidism, unspecified (principal); E55.9 Vitamin D deficiency, unspecified
CPT/HCPCS: 80050; 80053; 80061; 82306; 84443; 85025

== ENCOUNTER 2024-01-01 14:08 | Outpatient (CLI) | payer OTHER, SELFPAY ==
[2024-01-01 15:25] LABS: Free Thyroxine Index 4.6 ug/dL (5.93-13.13); T4 (Thyroxine) 12.8 ug/dl (5.53-11.0); Triiodothryronine (T3) Uptake 36 % (23.5-40.5)
[2024-01-01 15:39] LABS: Thyroid Stimulating Hormone 0.07 uIU/mL (0.465-4.68)
== END 2024-01-01 23:59 | disposition home or self-care (01) ==
LOC: LAB 14:09
PROVIDERS: PCP Physician Assistant; Visit Provider Physician Assistant
DX: E03.9 Hypothyroidism, unspecified (principal)
CPT/HCPCS: 36415; 84436; 84443; 84479

== ENCOUNTER 2024-05-26 15:20 | Outpatient (CLI) | payer OTHER, SELFPAY ==
[2024-05-26 16:55] LABS: Microscopic, Urine URINE MICROSCOPIC (MICROSCOPIC)
[2024-05-26 17:22] LABS: Basophils # 0.1 K/mm3 (0-0.2); Basophils % 1.2 % (0.1-2.0); Eosinophils # 0.1 K/mm3 (0.0-0.4); Eosinophils % 0.8 % (0.1-12.0); Hematocrit 48.5 % (37.0-47.0); Hemoglobin 15.8 g/dL (12.2-16.2); Lymphocytes % 33.7 % (10-50); Mean Corpuscular HGB Conc 32.6 g/dL (31.8-35.4); Mean Corpuscular Volume 92.2 fl (81-99); Mean Platelet Volume 10.8 fl (7.4-10.4); Monocytes # 0.3 K/mm3 (0.1-1.0); Monocytes % 5.3 % (1.7-9.3); Neutrophils # 3.5 K/mm3 (1.8-7.8); Neutrophils % 58.7 % (37.0-80.0); Platelet Count 219 K/mm3 (142-424); Red Blood Count 5.26 M/mm3 (4.20-5.40); Red Cell Distribution Width 12.4 % (11.5-17.5); White Blood Count 5.9 K/mm3 (4.8-10.8)
[2024-05-26 17:40] LABS: Albumin Level 4.9 g/dl (3.5-5.0); Chloride 96 mmol/L (98-107); Potassium 4.7 mmoL/L (3.5-5.1); Sodium 141 mmol/L (136-145)
[2024-05-26 17:43] LABS: Alanine Aminotransferase 21 U/L (12-78); Alkaline Phosphatase 89 U/L (38-126); Anion Gap 14.7 mEq/L (5-15); Aspartate Amino Transferase 73 U/L (14-36); Bilirubin,Total 0.7 mg/dl (0.2-1.3); Blood Urea Nitrogen 13 mg/dl (7-17); Calcium 9.6 mg/dl (8.4-10.2); Carbon Dioxide 35 mmol/L (22.0-30.0); Cholesterol 193 mg/dl (140-200); Estimated Glomerular Filt Rate 88 ml/min (>60); GFR (African American) 107 ML/MIN (>60); Globulin 2.5 g/dL (1.3-3.2); Glucose 82 mg/dl (74-100); Iron 150 ug/dL (37-170); Total Protein,Serum 7.4 g/dl (6.3-8.2); Triglycerides 97 mg/dl (30-150); VLDL Cholesterol 19 mg/dL (0-40)
[2024-05-26 17:44] LABS: Chol/HDL Ratio 2.2 (1-3.5); HDL Cholesterol 87 mg/dl (40-60)
[2024-05-26 17:55] LABS: 25-OH Vitamin D, Total 29.4 ng/mL (30-100); Direct LDL Cholesterol 85.64 mg/dL (100-129); Free T4 (Free Thyroxine) 1.39 ng/dl (0.78-2.19)
[2024-05-26 17:59] LABS: Total Iron Binding Capacity 326 ug/dL (265-497)
[2024-05-26 18:14] LABS: Thyroid Stimulating Hormone 1.12 uIU/mL (0.465-4.68)
[2024-05-26 18:17] LABS: HIV Combo NEGATIVE (Negative)
[2024-05-26 18:19] LABS: Ferritin 65.5 ng/ml (11.1-264)
[2024-05-26 18:28] LABS: Hepatitis C Ab Qual. W/ RFX NEGATIVE (Negative)
[2024-05-26 18:33] LABS: Vitamin B12 474 pg/mL (239-931)
[2024-05-26 19:08] LABS: Appearance,Urine CLEAR (Clear); Bilirubin,Urine Negative (Negative); Blood, Urine Negative (Negative); Color,Urine YELLOW (Yellow); Glucose,Urine (UA) Negative (Negative); Ketones,Urine Negative (Negative); Leukocyte Esterase,Urine Negative (Negative); Nitrate,Urine Negative (Negative); Protein,Urine Negative (Negative); Urobilinogen,Urine 0.2 EU/dl (0.2)
[2024-05-26 21:28] LABS: Hemoglobin A1C 5.5 % (4.0-6.0)
== END 2024-05-26 23:59 | disposition home or self-care (01) ==
LOC: LAB.DROPOF 05-27 10:10
PROVIDERS: PCP Nurse Practitioner Family; Visit Provider Nurse Practitioner Family
DX: E03.9 Hypothyroidism, unspecified (principal); J44.9 Chronic obstructive pulmonary disease, unspecified; R06.00 Dyspnea, unspecified; F17.200 Nicotine dependence, unspecified, uncomplicated; E55.9 Vitamin D deficiency, unspecified; E53.8 Deficiency of other specified B group vitamins; R53.83 Other fatigue; Z11.59 Encounter for screening for other viral diseases; Z13.1 Encounter for screening for diabetes mellitus; Z76.89 Persons encountering health services in other specified circumstances; Z68.1 Body mass index [BMI] 19.9 or less, adult; Z11.4 Encounter for screening for human immunodeficiency virus [HIV]; Z13.220 Encounter for screening for lipoid disorders
CPT/HCPCS: 80053; 80061; 81001; 82306; 82607; 82728; 83036; 83540; 83550; 84439; 84443; 85025; 86803; 87086; 87389

== ENCOUNTER 2024-08-27 15:18 | Outpatient (CLI) | payer OTHER, SELFPAY ==
--- NOTE | 2024-08-27 15:30 | CT_ITS ---
FINAL REPORT TECHNIQUE: Thin section axial images were obtained from the lung apices to the upper abdomen by computed tomography. Reformatted images were obtained and reviewed. This study was performed with techniques to keep radiation doses al low as reasonably achievable (ALARA). Individualized dose reduction techniques using automated exposure control or adjustment of mA and/or kV according to the patient's size were employed. CLINICAL HISTORY: lung cancer screening smoker 1/2 ppd x 32 years COMPARISON: None FINDINGS: CHEST CT LOW DOSE 49-year-old female, 11-hwhp-sccn history of smoking, current smoker. CTDI vol (mGy): 2.90 DLP (mGy-cm): 109.16 There is no axillary adenopathy. There is no mediastinal or hilar mass or adenopathy. The heart is normal in size. There is no pericardial or pleural effusion. There are advanced changes of centrilobular emphysema and prominent pulmonary scarring. Lung window images demonstrate a 6 mm ovoid right upper lobe nodule, best seen on image #26 of series 4. Several calcified granulomas are noted. Limited images of the upper abdomen are unremarkable. IMPRESSION: Lung-RADS category 3S, the S designation for the advanced changes of centrilobular emphysema. Recommend 6 month follow up low dose chest CT. Reviewed, Interpreted and Dictated by Roderick Pina MD Transcribed by Patrica Gutierrez Authenticated and [facility]
== END 2024-08-27 23:59 | disposition home or self-care (01) ==
LOC: RAD 15:18
PROVIDERS: PCP Internal Medicine; Visit Provider Nurse Practitioner Family
DX: Z12.2 Encounter for screening for malignant neoplasm of respiratory organs (principal); F17.210 Nicotine dependence, cigarettes, uncomplicated
CPT/HCPCS: 71271